=== PATIENT | male | born 1950 | race Caucasian/White ===

== ENCOUNTER 2018-02-07 20:42 | Inpatient (IN) | payer OTHER ==
[~2018-02-07] VITALS: Ht 172.7 cm; Wt 93.4 kg
[2018-02-07] MEDS ORDERED: IBUPROFEN 600 MG TABLET PO ONE (21:00)
[2018-02-07] MEDS ORDERED: IBUPROFEN 600 MG TABLET ONE (21:08)
[2018-02-07] MEDS ORDERED: FENO145T37 PO (21:12)
[2018-02-07] MEDS ORDERED: GABA-532 PO (21:12)
[2018-02-07] MEDS ORDERED: ALBU18HF2 IH (21:12)
[2018-02-07] MEDS ORDERED: DIVA500T2 PO (21:12)
[2018-02-07] MEDS ORDERED: CLON0.5T12 PO (21:12)
[2018-02-07] MEDS ORDERED: CHOL50004 PO (21:12)
[2018-02-07] MEDS ORDERED: CLOP75TA15 PO (21:12)
[2018-02-07] MEDS ORDERED: FLUO-120 PO (21:12)
[2018-02-07] MEDS ORDERED: HYDR25TA4 PO (21:12)
[2018-02-07] MEDS ORDERED: AMLO10TA2 PO (21:12)
[2018-02-07] MEDS ORDERED: LAMO200T PO (21:12)
[2018-02-07] MEDS ORDERED: LISI10TA5 PO (21:12)
[2018-02-07] MEDS ORDERED: ATOR20TA PO (21:12)
[2018-02-07] MEDS ORDERED: RANO10003 PO (21:12)
[2018-02-07] MEDS ORDERED: METO50TA16 PO (21:12)
[2018-02-07] MEDS ORDERED: MAGNESIUM HYDROXIDE 30 ML LIQUID UDC PO PRN (22:00)
[2018-02-07] MEDS ORDERED: MAG HYDROX/AL HYDROX/SIMETH 30 ML LIQUID UDC PO PRN (22:00)
[2018-02-07] MEDS ORDERED: LORAZEPAM 1 MG TABLET PO PRN (22:00)
[2018-02-07] MEDS: METOPROLOL TARTRATE 50 MG TABLET PO SCH (23:26)
[2018-02-08 07:26] LABS: BASOPHILS # (AUTO) 0.1 K/uL (0.0-8.0); BASOPHILS % (AUTO) 1.7 % (0.0-2.0); EOSINOPHILS # (AUTO) 0.3 K/uL (0.0-0.7); EOSINOPHILS % (AUTO) 4.8 % (0.0-7.0); HEMOGLOBIN 13.2 g/dL (12.5-16.3); LYMPHOCYTES # (AUTO) 2.6 K/uL (20.0-40.0); LYMPHOCYTES % (AUTO) 47.2 % (20.5-51.5); MEAN CORPUSCULAR HEMOGLOBIN 30.1 uug (23.8-33.4); MEAN CORPUSCULAR HGB CONC 34 g/dL (32.5-36.3); MEAN CORPUSCULAR VOLUME 88.7 fL (73.0-96.2); MONOCYTES # (AUTO) 0.6 K/uL (2.0-10.0); MONOCYTES % (AUTO) 11.7 % (0.0-11.0); NEUTROPHILS # (AUTO) 1.9 K/uL (1.8-8.9); NEUTROPHILS % (AUTO) 34.6 % (38.5-71.5); PLATELET COUNT (AUTO) 252 K/uL (152-348); RED BLOOD CELL COUNT(AUTO) 4.39 MIL/uL (4.06-5.63); WHITE BLOOD COUNT (AUTO) 5.4 K/uL (3.6-10.2)
[2018-02-08 07:30] VITALS: BP 165/85
[2018-02-08 07:53] LABS: BILIRUBIN,TOTAL 0.3 mg/dL (0.2-1.0); CREATININE 1.3 mg/dL (0.6-1.3); MAGNESIUM 2.1 mg/dL (1.8-2.4); PHOSPHOROUS 3.8 mg/dL (2.5-4.9); TOTAL PROTEIN, SERUM 6.3 g/dL (6.4-8.2)
[2018-02-08 07:58] LABS: THYROID STIMULATING HORMONE 1.636 mIU/mL (0.358-3.740)
[2018-02-08 08:04] LABS: POTASSIUM 2.8 mmol/L (3.5-5.1)
[2018-02-08] MEDS ORDERED: POTASSIUM CHLORIDE 10 MEQ TAB.PRT.SR PO STA (08:17)
[2018-02-08] MEDS ORDERED: POTASSIUM CHLORIDE 20 MEQ TAB.PRT.SR PO STA (08:20)
[2018-02-08] MEDS: CHOLECALCIFEROL 1,000 UNIT TABLET PO SCH (08:24)
[2018-02-08] MEDS: FENOFIBRATE NANOCRYSTALLIZED 145 MG TABLET PO SCH (08:25)
[2018-02-08] MEDS: CLOPIDOGREL 75 MG TABLET PO SCH (08:25)
[2018-02-08] MEDS: HYDROCHLOROTHIAZIDE 25 MG TABLET PO SCH (08:25)
[2018-02-08] MEDS: LISINOPRIL 10 MG TABLET PO SCH (08:25)
[2018-02-08] MEDS ORDERED: LAMOTRIGINE 200 MG TABLET PO SCH (09:00)
[2018-02-08] MEDS ORDERED: DIVALPROEX 500 MG TABLET.DR PO SCH (09:00)
[2018-02-08] MEDS: RANOLAZINE 500 MG TAB.ER.12H PO SCH ×2 (09:13→17:16)
[2018-02-08] MEDS ORDERED: POTASSIUM CHLORIDE 20 MEQ TAB.PRT.SR PO ONE (11:00)
[2018-02-08] MEDS: AMLODIPINE 10 MG TABLET PO SCH (11:48)
[2018-02-08] MEDS: METOPROLOL TARTRATE 50 MG TABLET PO SCH ×2 (11:48→22:11)
[2018-02-08] MEDS: ACETAMINOPHEN 325 MG TABLET PO PRN ×2 (14:31→20:52)
[2018-02-08] MEDS: hydrALAZINE HCL 25 MG TABLET PO PRN (15:01)
[2018-02-08 15:35] VITALS: BP 161/91
[2018-02-08] MEDS ORDERED: DIVALPROEX 250 MG TABLET.DR PO SCH (17:00)
[2018-02-08] MEDS: DIVALPROEX 500 MG TABLET.DR PO SCH (17:16)
[2018-02-08 20:43] VITALS: BP 130/65
[2018-02-08] MEDS: ATORVASTATIN 20 MG TABLET PO SCH (20:52)
[2018-02-08] MEDS: TRAZODONE 100 MG TABLET PO SCH (20:52)
[2018-02-09 07:30] VITALS: BP 123/72
[2018-02-09] MEDS: FENOFIBRATE NANOCRYSTALLIZED 145 MG TABLET PO SCH (08:57)
[2018-02-09] MEDS: DIVALPROEX 500 MG TABLET.DR PO SCH ×3 (08:57→17:11)
[2018-02-09] MEDS: CLOPIDOGREL 75 MG TABLET PO SCH (08:57)
[2018-02-09] MEDS: FLUOXETINE HCL 20 MG CAPSULE PO SCH (08:58)
[2018-02-09] MEDS: HYDROCHLOROTHIAZIDE 25 MG TABLET PO SCH (08:58)
[2018-02-09] MEDS: CHOLECALCIFEROL 1,000 UNIT TABLET PO SCH (08:58)
[2018-02-09] MEDS: LISINOPRIL 10 MG TABLET PO SCH (08:58)
[2018-02-09] MEDS: AMLODIPINE 10 MG TABLET PO SCH (08:59)
[2018-02-09] MEDS: METOPROLOL TARTRATE 50 MG TABLET PO SCH ×2 (08:59→20:42)
[2018-02-09] MEDS: LAMOTRIGINE 200 MG TABLET PO SCH (09:35)
[2018-02-09] MEDS: RANOLAZINE 500 MG TAB.ER.12H PO SCH ×2 (09:35→17:11)
[2018-02-09 09:56] LABS: *BLOOD, URINE NEGATIVE (NEGATIVE); *CLARITY,URINE CLEAR (CLEAR); *COLOR,URINE YELLOW (YELLOW); *KETONES,URINE NEGATIVE (NEGATIVE); *PROTEIN,URINE TRACE (NEGATIVE); LEUKOCYTE ESTERASE ,URINE NEGATIVE (NEGATIVE); NITRITE, URINE NEGATIVE (NEGATIVE); UGLUCOSE NEGATIVE (NEGATIVE)
[2018-02-09 10:00] LABS: *BILIRUBIN,URIN 1+ (NEGATIVE)
[2018-02-09 10:04] LABS: BACTERIA,URINE FEW /HPF (NONE SEEN); MUCUS,URINE MODERATE /LPF (0-FEW); RBC,URINE 0-3 /HPF (0-3); SQUAMOUS EPITHELIAL CELL,UR FEW /HPF (NONE SEEN)
[2018-02-09] MEDS ORDERED: POTASSIUM CHLORIDE 20 MEQ TAB.PRT.SR PO ONE (11:15)
[2018-02-09] MEDS: ACETAMINOPHEN 325 MG TABLET PO PRN ×2 (11:46→22:11)
[2018-02-09 15:59] VITALS: BP 148/86
[2018-02-09] MEDS: TRAZODONE 100 MG TABLET PO SCH (20:42)
[2018-02-09] MEDS: ATORVASTATIN 20 MG TABLET PO SCH (20:42)
[2018-02-09] MEDS: hydrALAZINE HCL 25 MG TABLET PO PRN (20:59)
[2018-02-09 22:04] VITALS: BP 139/75
[2018-02-10 07:30] VITALS: BP 164/61
[2018-02-10] MEDS: CHOLECALCIFEROL 1,000 UNIT TABLET PO SCH (08:19)
[2018-02-10] MEDS: AMLODIPINE 10 MG TABLET PO SCH (08:19)
[2018-02-10] MEDS: DIVALPROEX 500 MG TABLET.DR PO SCH ×3 (08:20→16:06)
[2018-02-10] MEDS: FLUOXETINE HCL 20 MG CAPSULE PO SCH (08:20)
[2018-02-10] MEDS: METOPROLOL TARTRATE 50 MG TABLET PO SCH ×2 (08:20→20:26)
[2018-02-10] MEDS: HYDROCHLOROTHIAZIDE 25 MG TABLET PO SCH (08:20)
[2018-02-10] MEDS: LISINOPRIL 10 MG TABLET PO SCH (08:20)
[2018-02-10] MEDS: CLOPIDOGREL 75 MG TABLET PO SCH (08:20)
[2018-02-10] MEDS: FENOFIBRATE NANOCRYSTALLIZED 145 MG TABLET PO SCH (08:21)
[2018-02-10] MEDS: RANOLAZINE 500 MG TAB.ER.12H PO SCH ×2 (08:21→16:06)
[2018-02-10] MEDS: LAMOTRIGINE 200 MG TABLET PO SCH (08:21)
[2018-02-10] MEDS: hydrALAZINE HCL 25 MG TABLET PO PRN (08:28)
[2018-02-10] MEDS: ACETAMINOPHEN 325 MG TABLET PO PRN (11:19)
[2018-02-10 15:23] VITALS: BP 137/71
[2018-02-10] MEDS: ATORVASTATIN 20 MG TABLET PO SCH (20:25)
[2018-02-10] MEDS: TRAZODONE 100 MG TABLET PO SCH (20:25)
[2018-02-10 20:32] VITALS: BP 137/71
[2018-02-10] MEDS: TEMAZEPAM 7.5 MG CAPSULE PO PRN (21:01)
[2018-02-11 07:30] VITALS: BP 130/67
[2018-02-11 08:24] LABS: CREATININE 1.6 mg/dL (0.6-1.3); POTASSIUM 3.1 mmol/L (3.5-5.1)
[2018-02-11] MEDS ORDERED: FLUOXETINE HCL 20 MG CAPSULE PO SCH (09:00)
[2018-02-11] MEDS: CHOLECALCIFEROL 1,000 UNIT TABLET PO SCH (09:15)
[2018-02-11] MEDS: FENOFIBRATE NANOCRYSTALLIZED 145 MG TABLET PO SCH (09:15)
[2018-02-11] MEDS: HYDROCHLOROTHIAZIDE 25 MG TABLET PO SCH (09:15)
[2018-02-11] MEDS: AMLODIPINE 10 MG TABLET PO SCH (09:16)
[2018-02-11] MEDS: DIVALPROEX 500 MG TABLET.DR PO SCH ×3 (09:16→17:29)
[2018-02-11] MEDS: CLOPIDOGREL 75 MG TABLET PO SCH (09:16)
[2018-02-11] MEDS: FLUOXETINE HCL 10 MG CAPSULE PO SCH (09:16)
[2018-02-11] MEDS: RANOLAZINE 500 MG TAB.ER.12H PO SCH ×2 (09:17→17:29)
[2018-02-11] MEDS: LISINOPRIL 10 MG TABLET PO SCH (09:17)
[2018-02-11] MEDS: METOPROLOL TARTRATE 50 MG TABLET PO SCH ×2 (09:17→21:04)
[2018-02-11] MEDS: LAMOTRIGINE 200 MG TABLET PO SCH (09:18)
[2018-02-11] MEDS: ASPIRIN/ACETAMINOPHEN/CAFFEINE TABLET PO PRN ×2 (09:32→16:45)
[2018-02-11] MEDS ORDERED: POTASSIUM CHLORIDE 10 MEQ TAB.PRT.SR PO ONE (14:00)
[2018-02-11 15:00] VITALS: BP 142/70
[2018-02-11] MEDS: ONDANSETRON ODT 4 MG TAB.RAPDIS SL PRN (19:41)
[2018-02-11 19:50] VITALS: BP 144/75
[2018-02-11] MEDS: TRAZODONE 100 MG TABLET PO SCH (21:03)
[2018-02-11] MEDS: ATORVASTATIN 20 MG TABLET PO SCH (21:03)
[2018-02-11] MEDS: TEMAZEPAM 7.5 MG CAPSULE PO PRN (22:36)
[2018-02-12 08:05] VITALS: BP 117/58
[2018-02-12] MEDS: HYDROCHLOROTHIAZIDE 25 MG TABLET PO SCH (09:00)
[2018-02-12] MEDS: LISINOPRIL 10 MG TABLET PO SCH (09:00)
[2018-02-12] MEDS: AMLODIPINE 10 MG TABLET PO SCH (09:00)
[2018-02-12] MEDS: RANOLAZINE 500 MG TAB.ER.12H PO SCH ×2 (09:09→17:12)
[2018-02-12] MEDS: FENOFIBRATE NANOCRYSTALLIZED 145 MG TABLET PO SCH (09:09)
[2018-02-12] MEDS: DIVALPROEX 500 MG TABLET.DR PO SCH ×3 (09:09→17:12)
[2018-02-12] MEDS: LAMOTRIGINE 200 MG TABLET PO SCH (09:09)
[2018-02-12] MEDS: CHOLECALCIFEROL 1,000 UNIT TABLET PO SCH (09:09)
[2018-02-12] MEDS: FLUOXETINE HCL 10 MG CAPSULE PO SCH (09:10)
[2018-02-12] MEDS: METOPROLOL TARTRATE 50 MG TABLET PO SCH ×2 (09:10→20:53)
[2018-02-12] MEDS: CLOPIDOGREL 75 MG TABLET PO SCH (09:10)
[2018-02-12] MEDS: ASPIRIN/ACETAMINOPHEN/CAFFEINE TABLET PO PRN ×2 (09:10→14:02)
[2018-02-12] MEDS: ONDANSETRON ODT 4 MG TAB.RAPDIS SL PRN (11:45)
[2018-02-12] MEDS: ACETAMINOPHEN 325 MG TABLET PO PRN ×2 (12:52→22:34)
[2018-02-12 16:46] VITALS: BP 137/69
[2018-02-12] MEDS ORDERED: METOCLOPRAMIDE HCL 10 MG TABLET PO PRN (18:30)
[2018-02-12] MEDS: ATORVASTATIN 20 MG TABLET PO SCH (20:53)
[2018-02-12] MEDS: TRAZODONE 100 MG TABLET PO SCH (20:55)
[2018-02-12 22:33] VITALS: BP 154/77
[2018-02-12] MEDS: TEMAZEPAM 7.5 MG CAPSULE PO PRN (22:34)
[2018-02-13 07:30] VITALS: BP 157/67
[2018-02-13] MEDS: CHOLECALCIFEROL 1,000 UNIT TABLET PO SCH (08:03)
[2018-02-13] MEDS: AMLODIPINE 10 MG TABLET PO SCH (08:03)
[2018-02-13] MEDS: HYDROCHLOROTHIAZIDE 25 MG TABLET PO SCH (08:04)
[2018-02-13] MEDS: CLOPIDOGREL 75 MG TABLET PO SCH (08:04)
[2018-02-13] MEDS: DIVALPROEX 500 MG TABLET.DR PO SCH ×3 (08:04→18:31)
[2018-02-13] MEDS: LISINOPRIL 10 MG TABLET PO SCH (08:04)
[2018-02-13] MEDS: FENOFIBRATE NANOCRYSTALLIZED 145 MG TABLET PO SCH (08:04)
[2018-02-13] MEDS: RANOLAZINE 500 MG TAB.ER.12H PO SCH ×2 (08:05→18:32)
[2018-02-13] MEDS: METOPROLOL TARTRATE 50 MG TABLET PO SCH ×2 (08:05→20:08)
[2018-02-13] MEDS: LAMOTRIGINE 200 MG TABLET PO SCH (08:05)
[2018-02-13] MEDS: FLUOXETINE HCL 10 MG CAPSULE PO SCH (08:05)
[2018-02-13 08:24] LABS: CREATININE 1.4 mg/dL (0.6-1.3); POTASSIUM 3.2 mmol/L (3.5-5.1)
[2018-02-13] MEDS ORDERED: PROPRANOLOL HCL 10 MG TABLET PO ONE (10:30)
[2018-02-13] MEDS: ONDANSETRON ODT 4 MG TAB.RAPDIS SL PRN ×2 (11:43→17:21)
[2018-02-13] MEDS: ASPIRIN/ACETAMINOPHEN/CAFFEINE TABLET PO PRN (11:53)
[2018-02-13] MEDS ORDERED: POTASSIUM CHLORIDE 20 MEQ TAB.PRT.SR PO ONE (12:15)
[2018-02-13 15:15] VITALS: BP 135/73
[2018-02-13 20:07] VITALS: BP 162/74
[2018-02-13] MEDS: ATORVASTATIN 20 MG TABLET PO SCH (20:07)
[2018-02-13] MEDS: PROPRANOLOL HCL 10 MG TABLET PO SCH (20:07)
[2018-02-13] MEDS: TRAZODONE 100 MG TABLET PO SCH (20:08)
[2018-02-14 08:00] VITALS: BP 126/65
[2018-02-14] MEDS: ASPIRIN/ACETAMINOPHEN/CAFFEINE TABLET PO PRN (08:59)
[2018-02-14] MEDS: CHOLECALCIFEROL 1,000 UNIT TABLET PO SCH (09:01)
[2018-02-14] MEDS: CLOPIDOGREL 75 MG TABLET PO SCH (09:01)
[2018-02-14] MEDS: FENOFIBRATE NANOCRYSTALLIZED 145 MG TABLET PO SCH (09:01)
[2018-02-14] MEDS: FLUOXETINE HCL 10 MG CAPSULE PO SCH (09:01)
[2018-02-14] MEDS: AMLODIPINE 10 MG TABLET PO SCH (09:02)
[2018-02-14] MEDS: LISINOPRIL 10 MG TABLET PO SCH (09:02)
[2018-02-14] MEDS: DIVALPROEX 500 MG TABLET.DR PO SCH ×3 (09:02→17:46)
[2018-02-14] MEDS: HYDROCHLOROTHIAZIDE 25 MG TABLET PO SCH (09:03)
[2018-02-14] MEDS: PROPRANOLOL HCL 10 MG TABLET PO SCH ×2 (09:04→20:06)
[2018-02-14] MEDS: LAMOTRIGINE 200 MG TABLET PO SCH (09:06)
[2018-02-14] MEDS: RANOLAZINE 500 MG TAB.ER.12H PO SCH ×2 (09:06→17:46)
[2018-02-14 11:05] VITALS: BP 165/78
[2018-02-14] MEDS: METOPROLOL TARTRATE 50 MG TABLET PO SCH ×2 (11:07→20:06)
[2018-02-14] MEDS: ONDANSETRON ODT 4 MG TAB.RAPDIS SL PRN (11:07)
[2018-02-14 16:16] VITALS: BP 156/82
[2018-02-14 20:00] VITALS: BP 138/69
[2018-02-14] MEDS: ATORVASTATIN 20 MG TABLET PO SCH (20:05)
[2018-02-14] MEDS: TRAZODONE 100 MG TABLET PO SCH (20:05)
[2018-02-15 07:30] VITALS: BP 115/96
[2018-02-15] MEDS: HYDROCHLOROTHIAZIDE 25 MG TABLET PO SCH (09:07)
[2018-02-15] MEDS: DIVALPROEX 500 MG TABLET.DR PO SCH ×3 (09:07→16:57)
[2018-02-15] MEDS: PROPRANOLOL HCL 10 MG TABLET PO SCH ×2 (09:08→20:14)
[2018-02-15] MEDS: LAMOTRIGINE 200 MG TABLET PO SCH (09:08)
[2018-02-15] MEDS: CLOPIDOGREL 75 MG TABLET PO SCH (09:09)
[2018-02-15] MEDS: AMLODIPINE 10 MG TABLET PO SCH (09:09)
[2018-02-15] MEDS: METOPROLOL TARTRATE 50 MG TABLET PO SCH ×2 (09:09→20:14)
[2018-02-15] MEDS: FLUOXETINE HCL 10 MG CAPSULE PO SCH (09:10)
[2018-02-15] MEDS: LISINOPRIL 10 MG TABLET PO SCH (09:10)
[2018-02-15] MEDS: RANOLAZINE 500 MG TAB.ER.12H PO SCH ×2 (09:10→16:57)
[2018-02-15] MEDS: CHOLECALCIFEROL 1,000 UNIT TABLET PO SCH (09:11)
[2018-02-15] MEDS: FENOFIBRATE NANOCRYSTALLIZED 145 MG TABLET PO SCH (09:11)
[2018-02-15] MEDS: ASPIRIN/ACETAMINOPHEN/CAFFEINE TABLET PO PRN ×2 (09:26→17:01)
[2018-02-15 16:34] VITALS: BP 141/72
[2018-02-15 20:11] VITALS: BP 151/74
[2018-02-15] MEDS: ATORVASTATIN 20 MG TABLET PO SCH (20:12)
[2018-02-15] MEDS: TRAZODONE 100 MG TABLET PO SCH (20:13)
[2018-02-15] MEDS: TEMAZEPAM 7.5 MG CAPSULE PO PRN (21:01)
[2018-02-16 07:30] VITALS: BP 141/69
[2018-02-16] MEDS: RANOLAZINE 500 MG TAB.ER.12H PO SCH ×3 (08:49→17:12)
[2018-02-16] MEDS: LAMOTRIGINE 200 MG TABLET PO SCH (08:49)
[2018-02-16] MEDS: LISINOPRIL 10 MG TABLET PO SCH (08:53)
[2018-02-16] MEDS: FLUOXETINE HCL 10 MG CAPSULE PO SCH (08:53)
[2018-02-16] MEDS: CHOLECALCIFEROL 1,000 UNIT TABLET PO SCH (08:53)
[2018-02-16] MEDS: FENOFIBRATE NANOCRYSTALLIZED 145 MG TABLET PO SCH (08:54)
[2018-02-16] MEDS: HYDROCHLOROTHIAZIDE 25 MG TABLET PO SCH (08:54)
[2018-02-16] MEDS: AMLODIPINE 10 MG TABLET PO SCH (08:55)
[2018-02-16] MEDS: PROPRANOLOL HCL 10 MG TABLET PO SCH ×2 (08:55→20:40)
[2018-02-16] MEDS: CLOPIDOGREL 75 MG TABLET PO SCH (08:57)
[2018-02-16] MEDS: METOPROLOL TARTRATE 50 MG TABLET PO SCH ×2 (08:57→20:41)
[2018-02-16] MEDS: DIVALPROEX 500 MG TABLET.DR PO SCH ×4 (08:57→17:12)
[2018-02-16] MEDS: ASPIRIN/ACETAMINOPHEN/CAFFEINE TABLET PO PRN ×2 (09:09→16:00)
[2018-02-16] MEDS: ONDANSETRON ODT 4 MG TAB.RAPDIS SL PRN (16:01)
[2018-02-16 20:04] VITALS: BP 146/75
[2018-02-16] MEDS: ATORVASTATIN 20 MG TABLET PO SCH (20:40)
[2018-02-16] MEDS: TRAZODONE 100 MG TABLET PO SCH (20:42)
[2018-02-16] MEDS: TEMAZEPAM 7.5 MG CAPSULE PO PRN (22:06)
[2018-02-17 07:30] VITALS: BP 119/59
[2018-02-17] MEDS: FLUOXETINE HCL 10 MG CAPSULE PO SCH (08:21)
[2018-02-17] MEDS: CHOLECALCIFEROL 1,000 UNIT TABLET PO SCH (08:22)
[2018-02-17] MEDS: PROPRANOLOL HCL 10 MG TABLET PO SCH ×2 (08:22→20:27)
[2018-02-17] MEDS: LISINOPRIL 10 MG TABLET PO SCH (08:23)
[2018-02-17] MEDS: FENOFIBRATE NANOCRYSTALLIZED 145 MG TABLET PO SCH (08:23)
[2018-02-17] MEDS: METOPROLOL TARTRATE 50 MG TABLET PO SCH ×2 (08:23→20:22)
[2018-02-17] MEDS: CLOPIDOGREL 75 MG TABLET PO SCH (08:24)
[2018-02-17] MEDS: DIVALPROEX 500 MG TABLET.DR PO SCH ×3 (08:24→16:45)
[2018-02-17] MEDS: HYDROCHLOROTHIAZIDE 25 MG TABLET PO SCH (08:24)
[2018-02-17] MEDS: AMLODIPINE 10 MG TABLET PO SCH (08:25)
[2018-02-17] MEDS: RANOLAZINE 500 MG TAB.ER.12H PO SCH ×2 (08:26→16:45)
[2018-02-17] MEDS: LAMOTRIGINE 200 MG TABLET PO SCH (08:31)
[2018-02-17 08:38] LABS: CREATININE 2.2 mg/dL (0.6-1.3)
[2018-02-17 08:39] LABS: POTASSIUM 2.7 mmol/L (3.5-5.1)
[2018-02-17] MEDS ORDERED: POTASSIUM CHLORIDE 20 MEQ TAB.PRT.SR PO ONE (10:00)
[2018-02-17] MEDS: ASPIRIN/ACETAMINOPHEN/CAFFEINE TABLET PO PRN (10:44)
[2018-02-17 13:41] LABS: POTASSIUM 3.3 mmol/L (3.5-5.1)
[2018-02-17] MEDS ORDERED: POTASSIUM CHLORIDE 10 MEQ TAB.PRT.SR PO ONE (16:45)
[2018-02-17 16:52] VITALS: BP 158/48
[2018-02-17 19:30] VITALS: BP 148/75
[2018-02-17] MEDS: TRAZODONE 100 MG TABLET PO SCH (20:22)
[2018-02-17] MEDS: ATORVASTATIN 20 MG TABLET PO SCH (20:22)
[2018-02-18 07:30] VITALS: BP 125/64
[2018-02-18 07:35] LABS: BASOPHILS % (AUTO) 0.9 % (0.0-2.0); EOSINOPHILS # (AUTO) 0.1 K/uL (0.0-0.7); EOSINOPHILS % (AUTO) 1.9 % (0.0-7.0); HEMATOCRIT 38.2 % (36.7-47.1); LYMPHOCYTES # (AUTO) 1.9 K/uL (20.0-40.0); LYMPHOCYTES % (AUTO) 36.1 % (20.5-51.5); MEAN CORPUSCULAR HEMOGLOBIN 30.5 uug (23.8-33.4); MEAN CORPUSCULAR HGB CONC 34 g/dL (32.5-36.3); MEAN CORPUSCULAR VOLUME 89.8 fL (73.0-96.2); MONOCYTES # (AUTO) 0.7 K/uL (2.0-10.0); MONOCYTES % (AUTO) 12.6 % (0.0-11.0); NEUTROPHILS # (AUTO) 2.5 K/uL (1.8-8.9); NEUTROPHILS % (AUTO) 48.5 % (38.5-71.5); PLATELET COUNT (AUTO) 244 K/uL (152-348); RED BLOOD CELL COUNT(AUTO) 4.25 MIL/uL (4.06-5.63); WHITE BLOOD COUNT (AUTO) 5.2 K/uL (3.6-10.2)
[2018-02-18 07:52] LABS: CREATININE 2.1 mg/dL (0.6-1.3); MAGNESIUM 2.6 mg/dL (1.8-2.4)
[2018-02-18] MEDS ORDERED: POTASSIUM CHLORIDE 20 MEQ TAB.PRT.SR PO SCH (09:00)
[2018-02-18] MEDS ORDERED: POTASSIUM CHLORIDE 20 MEQ TAB.PRT.SR PO ONE (09:15)
[2018-02-18] MEDS: CHOLECALCIFEROL 1,000 UNIT TABLET PO SCH (09:37)
[2018-02-18] MEDS: AMLODIPINE 10 MG TABLET PO SCH (09:37)
[2018-02-18] MEDS: FENOFIBRATE NANOCRYSTALLIZED 145 MG TABLET PO SCH (09:37)
[2018-02-18] MEDS: FLUOXETINE HCL 10 MG CAPSULE PO SCH (09:37)
[2018-02-18] MEDS: HYDROCHLOROTHIAZIDE 25 MG TABLET PO SCH (09:37)
[2018-02-18] MEDS: PROPRANOLOL HCL 10 MG TABLET PO SCH (09:37)
[2018-02-18] MEDS: DIVALPROEX 500 MG TABLET.DR PO SCH ×3 (09:37→13:11)
[2018-02-18 09:38] VITALS: BP 125/69
[2018-02-18] MEDS: METOPROLOL TARTRATE 50 MG TABLET PO SCH (09:38)
[2018-02-18] MEDS: LAMOTRIGINE 200 MG TABLET PO SCH (09:38)
[2018-02-18] MEDS: LISINOPRIL 10 MG TABLET PO SCH (09:38)
[2018-02-18] MEDS: CLOPIDOGREL 75 MG TABLET PO SCH (09:38)
[2018-02-18] MEDS: RANOLAZINE 500 MG TAB.ER.12H PO SCH (09:38)
[2018-02-18 10:36] LABS: *BILIRUBIN,URIN NEGATIVE (NEGATIVE); *BLOOD, URINE NEGATIVE (NEGATIVE); *CLARITY,URINE CLEAR (CLEAR); *COLOR,URINE YELLOW (YELLOW); *KETONES,URINE NEGATIVE (NEGATIVE); *PROTEIN,URINE NEGATIVE (NEGATIVE); *UROBILINOGEN,URINE 0.2 E.U./dl (NORMAL); LEUKOCYTE ESTERASE ,URINE NEGATIVE (NEGATIVE); NITRITE, URINE NEGATIVE (NEGATIVE); UGLUCOSE NEGATIVE (NEGATIVE)
[2018-02-18 10:47] LABS: BACTERIA,URINE FEW /HPF (NONE SEEN); RBC,URINE 0-3 /HPF (0-3); SQUAMOUS EPITHELIAL CELL,UR FEW /HPF (NONE SEEN); WBC,URINE 0-3 /HPF (0-3)
[2018-02-18] MEDS ORDERED: ASPI1TAB2 PO (17:38)
[2018-02-18] MEDS ORDERED: ONDA8TAB13 SL (17:43)
[2018-02-18] MEDS ORDERED: PROP40TA7 PO (17:43)
[2018-02-18] MEDS ORDERED: TRAZ300T2 PO (17:43)
[2018-02-18] MEDS ORDERED: POTA20TA10 PO (17:43)
[2018-02-18] MEDS ORDERED: ACET-2154 PO (17:45)
[2018-02-18] MEDS ORDERED: PROP10TA10 PO (17:47)
== END 2018-02-18 14:30 | disposition short-term general hospital (02) | DRG 885 ==
LOC: ER 20:44 → GPS 21:19
PROVIDERS: ADMIT Psychiatry & Neurology Psychiatry; ATTEND Nurse Practitioner Acute Care
DX: F31.30 Bipolar disorder, current episode depressed, mild or moderate severity, unspecified (principal); N39.0 Urinary tract infection, site not specified; G43.909 Migraine, unspecified, not intractable, without status migrainosus; G89.29 Other chronic pain; Z79.899 Other long term (current) drug therapy; Z79.02 Long term (current) use of antithrombotics/antiplatelets; I11.9 Hypertensive heart disease without heart failure; Z95.1 Presence of aortocoronary bypass graft; Z95.5 Presence of coronary angioplasty implant and graft; E78.5 Hyperlipidemia, unspecified; I25.119 Atherosclerotic heart disease of native coronary artery with unspecified angina pectoris; I25.2 Old myocardial infarction; F12.90 Cannabis use, unspecified, uncomplicated; E87.6 Hypokalemia; Z87.891 Personal history of nicotine dependence; G47.33 Obstructive sleep apnea (adult) (pediatric); J32.3 Chronic sphenoidal sinusitis; E66.9 Obesity, unspecified; Z68.31 Body mass index [BMI] 31.0-31.9, adult; Z71.3 Dietary counseling and surveillance; Z59.0 Homelessness; Z91.14 Patient's other noncompliance with medication regimen; Z91.81 History of falling; L98.9 Disorder of the skin and subcutaneous tissue, unspecified; I67.2 Cerebral atherosclerosis
CPT/HCPCS: 36415; 70030-TC; 70450; 71045; 80164; 83735; 84100; 84132; 84443; 85025; 87086; 93005; A4663; A9150; Q0162

== ENCOUNTER 2018-02-18 14:55 | Inpatient (IN) | payer MEDICARE, OTHER ==
[~2018-02-18] VITALS: Ht 172.7 cm; Wt 100.7 kg
[2018-02-18 14:00] VITALS: BP 156/83
--- NOTE | 2018-02-18 14:00 | NUR ---
Received patient from [facility] via wheelchair in stable condition. Patient is awake, alert and oriented x4, in no acute distress. Denies chest pain or SOB. Patient c/o mild migraine headache 10/11. Complete body assessment done, no skin injury noted. Skin is intact. Lungs clear upon auscultation. Bowel sounds present on all 4 quadrants. PERRLA. Patient able to ambulate with cane/FWW with moderate assistance. Oriented to the use of call light and bed side rails and bed alarm. Epic group was paged, spoke with MINERVA Waldrop made her aware of patient admission to the unit. Admission orders given. Patient denies any dysuria or flank pain. Urinal was provided. Able to void freely. Admission questions was done accordingly. Will continue to monitor.
[~2018-02-18 14:55] MED LIST: ALBU18HF2 IH; AMLO10TA2 PO; ATOR20TA PO; CHOL50004 PO; CLON0.5T12 PO; CLOP75TA15 PO; DIVA500T2 PO; FENO145T37 PO; FLUO-120 PO; GABA-532 PO; HYDR25TA4 PO; LAMO200T PO; LISI10TA5 PO; METO50TA16 PO; RANO10003 PO
[2018-02-18] MEDS ORDERED: MAGNESIUM HYDROXIDE 30 ML LIQUID UDC PO PRN (16:30)
[2018-02-18] MEDS ORDERED: Z GUARD REMEDY PASTE 57 GM TUBE TOP PRN (16:30)
[2018-02-18] MEDS ORDERED: ACETAMINOPHEN 325 MG TABLET PO PRN (16:30)
[2018-02-18] MEDS ORDERED: GABAPENTIN 100 MG CAPSULE PO SCH (16:45)
[2018-02-18] MEDS ORDERED: FLUOXETINE HCL 20 MG CAPSULE PO SCH (17:00)
[2018-02-18] MEDS ORDERED: ALBUTEROL SULFATE 8 GM HFA.AER.AD IH SCH (17:00)
[2018-02-18] MEDS: METOPROLOL TARTRATE 50 MG TABLET PO SCH (17:26)
[2018-02-18] MEDS: DIVALPROEX 500 MG TABLET.DR PO SCH (17:26)
[2018-02-18] MEDS: AMLODIPINE 10 MG TABLET PO SCH (17:26)
[2018-02-18] MEDS ORDERED: ALBUTEROL SULFATE 2.5 MG/3 ML NEBU NEB PRN (17:30)
[2018-02-18] MEDS ORDERED: ASPI1TAB2 PO (17:38)
[2018-02-18] MEDS ORDERED: ONDA8TAB13 SL (17:43)
[2018-02-18] MEDS ORDERED: POTA20TA10 PO (17:43)
[2018-02-18] MEDS ORDERED: TRAZ300T2 PO (17:43)
[2018-02-18] MEDS ORDERED: PROP40TA7 PO (17:43)
[2018-02-18] MEDS ORDERED: ACET-2154 PO (17:45)
[2018-02-18] MEDS ORDERED: PROP10TA10 PO (17:47)
[2018-02-18] MEDS: IV D5W-0.45% NS +20 KCL 1,000 ML IV PRN (17:58)
--- NOTE | 2018-02-18 18:16 | NUR ---
End of shift note: Patient is awake, alert and oriented x4, in no acute distress. No SOB or chest pain noted. Denies any suicidal plan/attempt at this time. IV fluids running at 75cc/hr, IV site on LH intact. All needs attended and met. Will continue to monitor. Addendum: 02/18/18 at 1820 by LASHON HUSSEIN RN BLOCK MECHANIC made aware of patient's c/o blood in the stool [place] [facility] [place] to collect stool for OB, noted and carried out. Patient made aware
--- NOTE | 2018-02-18 19:25 | NUR ---
RECEIVED PT AWAKE, ALERT, ORIENTEDX3.IV INTACT AND PATENT. PT SHOWS NO ACUTE DISTRESS. CALL LIGHT WITHIN REACH, BED ALARM ON AND IN LOW POSITION, SIDE RAILS UPX2. PT AWARE THAT WE NEED AN OB MUNA FROM HIM. PUT COKER ON THE BATHROOM. WILL CONTINUE TO MONITOR.
[2018-02-18 20:00] VITALS: BP 145/60
[2018-02-18] MEDS: TRAZODONE 50 MG TABLET PO SCH (20:12)
[2018-02-18] MEDS: SULFAMETH/TRIMETH 800/160 MG TABLET PO SCH (20:12)
[2018-02-18] MEDS: PROPRANOLOL HCL 10 MG TABLET PO SCH (20:13)
[2018-02-18] MEDS: RANOLAZINE 500 MG TAB.ER.12H PO SCH (20:13)
[2018-02-18] MEDS: ATORVASTATIN 20 MG TABLET PO SCH (20:13)
[2018-02-18] MEDS ORDERED: TRAZODONE HCL 150 MG PO SCH (21:00)
[2018-02-19] MEDS: CLONAZEPAM 0.5 MG TABLET PO PRN (00:14)
[2018-02-19] MEDS: ASPIRIN/ACETAMINOPHEN/CAFFEINE TABLET PO SCH ×4 (00:14→17:00)
[2018-02-19 04:24] VITALS: BP 98/52
--- NOTE | 2018-02-19 06:27 | NUR ---
PT SLEPT THROUGHOUT THE SHIFT. PT SHOWS NO SIGNS OF DISTRESS. PT ON CPAP LAST NIGHT WHEN SLEEPING. PRESCRIBED MEDICATION GIVEN AND PT TOLERATED IT WELL. SAFETY AND COMFORT PROVIDED. ALL NEEDS ARE MET. WILL ENDORSE ACCORDINGLY.
[2018-02-19 07:01] LABS: BASOPHILS # (AUTO) 0.1 K/uL (0.0-8.0); EOSINOPHILS # (AUTO) 0.1 K/uL (0.0-0.7); EOSINOPHILS % (AUTO) 2.2 % (0.0-7.0); HEMATOCRIT 34.9 % (36.7-47.1); HEMOGLOBIN 12.1 g/dL (12.5-16.3); LYMPHOCYTES # (AUTO) 2.4 K/uL (20.0-40.0); LYMPHOCYTES % (AUTO) 47.2 % (20.5-51.5); MEAN CORPUSCULAR HGB CONC 35 g/dL (32.5-36.3); MEAN CORPUSCULAR VOLUME 89.9 fL (73.0-96.2); MONOCYTES # (AUTO) 0.6 K/uL (2.0-10.0); MONOCYTES % (AUTO) 12.1 % (0.0-11.0); NEUTROPHILS # (AUTO) 1.9 K/uL (1.8-8.9); NEUTROPHILS % (AUTO) 37.5 % (38.5-71.5); PLATELET COUNT (AUTO) 233 K/uL (152-348); RED BLOOD CELL COUNT(AUTO) 3.89 MIL/uL (4.06-5.63); WHITE BLOOD COUNT (AUTO) 5.1 K/uL (3.6-10.2)
[2018-02-19 07:10] LABS: CREATININE 1.9 mg/dL (0.6-1.3); MAGNESIUM 2.5 mg/dL (1.8-2.4); PHOSPHOROUS 4.9 mg/dL (2.5-4.9); POTASSIUM 2.9 mmol/L (3.5-5.1)
--- NOTE | 2018-02-19 07:15 | NUR ---
Received patient in bed, awake, alert and oriented x4, in no acute distress. Denies any suicidal ideation/attempt at this time. IV fluids running at 75cc/hr. Denies any chest pain or SOB at this time. IV site on LH intact, no s/s of infiltration noted. Will continue to monitor
[2018-02-19] MEDS: IV D5W-0.45% NS +20 KCL 1,000 ML IV PRN ×2 (07:40→20:42)
[2018-02-19] MEDS: ONDANSETRON 4 MG/2 ML VIAL IV PRN ×2 (08:18→17:13)
[2018-02-19] MEDS: DIVALPROEX 500 MG TABLET.DR PO SCH ×3 (08:25→16:57)
[2018-02-19] MEDS: SULFAMETH/TRIMETH 800/160 MG TABLET PO SCH ×2 (08:25→20:15)
[2018-02-19] MEDS: RANOLAZINE 500 MG TAB.ER.12H PO SCH ×2 (08:25→20:15)
[2018-02-19] MEDS: FENOFIBRATE NANOCRYSTALLIZED 145 MG TABLET PO SCH (08:25)
[2018-02-19] MEDS: METOPROLOL TARTRATE 50 MG TABLET PO SCH ×2 (08:26→16:56)
[2018-02-19] MEDS: CHOLECALCIFEROL 1,000 UNIT TABLET PO SCH (08:26)
[2018-02-19] MEDS: PROPRANOLOL HCL 10 MG TABLET PO SCH ×2 (08:26→20:16)
[2018-02-19] MEDS: AMLODIPINE 10 MG TABLET PO SCH ×2 (08:26→16:57)
[2018-02-19] MEDS: LAMOTRIGINE 200 MG TABLET PO SCH (08:26)
[2018-02-19] MEDS: CLOPIDOGREL 75 MG TABLET PO SCH (08:27)
[2018-02-19 11:23] VITALS: BP 143/76
[2018-02-19] MEDS ORDERED: POTASSIUM CHLORIDE 10 MEQ TAB.PRT.SR PO ONE ×2 (12:00→15:00)
[2018-02-19] MEDS ORDERED: POTASSIUM CHLORIDE 20 MEQ TAB.PRT.SR PO ONE ×2 (12:30→15:00)
[2018-02-19 15:15] VITALS: BP 135/67
--- NOTE | 2018-02-19 17:51 | NUR ---
End of shift note: Patient is alert and oriented x4, in no acute distress. Denies any suicidal ideation/attempt. Medicated for migraine headache routinely as ordered and was effective. Voiding freely, denies any dysuria or flank pain. Denies any bleeding or blood in the stool. No BM noted during this shift. Will endorse to cnc machinist 2nd shift for collection of stool. All needs attended and met. Call light within reach. Will continue to monitor.
[2018-02-19 18:24] LABS: CREATININE 1.5 mg/dL (0.6-1.3); POTASSIUM 3.4 mmol/L (3.5-5.1)
[2018-02-19 18:50] LABS: *BILIRUBIN,URIN NEGATIVE (NEGATIVE); *BLOOD, URINE NEGATIVE (NEGATIVE); *CLARITY,URINE CLEAR (CLEAR); *COLOR,URINE YELLOW (YELLOW); *KETONES,URINE NEGATIVE (NEGATIVE); *PROTEIN,URINE NEGATIVE (NEGATIVE); *UROBILINOGEN,URINE 0.2 E.U./dl (NORMAL); LEUKOCYTE ESTERASE ,URINE NEGATIVE (NEGATIVE); NITRITE, URINE NEGATIVE (NEGATIVE); PH,URINE 7.5 (5.0-8.0); UGLUCOSE NEGATIVE (NEGATIVE)
[2018-02-19 18:56] LABS: *CREATININE,URINE 74.5 mg/dL (30-125); *URINE TOTAL PROTEIN RANDOM 19.8 mg/dL (<150/24HR)
--- NOTE | 2018-02-19 19:15 | NUR ---
RECEIVED PT AWAKE, ALERT, ORIENTEDX4. PT SHOWS NO SIGNS OF DISTRESS. PT IV INTACT AND PATENT. PT HAVE COUGH. CALL LIGHT WITHIN REACH. BED ALARM ON AND IN LOW POSITION. WILL CONTINUE TO MONITOR.
[2018-02-19 19:35] LABS: SQUAMOUS EPITHELIAL CELL,UR FEW /HPF (NONE SEEN); WBC,URINE 0-3 /HPF (0-3)
[2018-02-19 20:00] VITALS: BP 136/73
[2018-02-19] MEDS: TRAZODONE 50 MG TABLET PO SCH (20:15)
[2018-02-19] MEDS: ATORVASTATIN 20 MG TABLET PO SCH (20:15)
[2018-02-19] MEDS ORDERED: GUAIFENESIN/DEXTROMETHORPHAN 5 ML UDC PO PRN (20:45)
[2018-02-20] MEDS: ASPIRIN/ACETAMINOPHEN/CAFFEINE TABLET PO SCH ×5 (00:36→23:54)
[2018-02-20 04:37] VITALS: BP 108/59
[2018-02-20 06:14] LABS: BASOPHILS % (AUTO) 0.9 % (0.0-2.0); EOSINOPHILS # (AUTO) 0.2 K/uL (0.0-0.7); EOSINOPHILS % (AUTO) 3.2 % (0.0-7.0); HEMATOCRIT 37.9 % (36.7-47.1); HEMOGLOBIN 12.9 g/dL (12.5-16.3); LYMPHOCYTES # (AUTO) 2.7 K/uL (20.0-40.0); LYMPHOCYTES % (AUTO) 52.6 % (20.5-51.5); MEAN CORPUSCULAR HEMOGLOBIN 30.7 uug (23.8-33.4); MEAN CORPUSCULAR HGB CONC 34 g/dL (32.5-36.3); MEAN CORPUSCULAR VOLUME 90.3 fL (73.0-96.2); MONOCYTES # (AUTO) 0.5 K/uL (2.0-10.0); MONOCYTES % (AUTO) 9.8 % (0.0-11.0); NEUTROPHILS # (AUTO) 1.7 K/uL (1.8-8.9); NEUTROPHILS % (AUTO) 33.5 % (38.5-71.5); PLATELET COUNT (AUTO) 243 K/uL (152-348); WHITE BLOOD COUNT (AUTO) 5.1 K/uL (3.6-10.2)
--- NOTE | 2018-02-20 06:20 | NUR ---
PT SLEPT THROUGHOUT THE SHIFT. PT SHOWS NO SIGNS OF DISTRESS. PRESCRIBED MEDICATION GIVEN AND PT TOLERATED IT WELL. SAFETY AND COMFORT PROVIDED. ALL NEEDS ARE MET. WILL ENDORSE ACCORDINGLY.
[2018-02-20 06:28] LABS: ALANINE AMINOTRANSFERASE 10 U/L (16-63); ALKALINE PHOSPHATASE 31 U/L (50-136); ASPARTATE AMINOTRANSFERASE < 5 U/L (15-37); BILIRUBIN,TOTAL 0.3 mg/dL (0.2-1.0); CARBON DIOXIDE 33 mmol/L (21-32); CHLORIDE 104 mmol/L (98-107); CREATININE 1.9 mg/dL (0.6-1.3); GLUCOSE 93 mg/dL (74-106); MAGNESIUM 2.1 mg/dL (1.8-2.4); PHOSPHOROUS 3.8 mg/dL (2.5-4.9); POTASSIUM 3.4 mmol/L (3.5-5.1); TOTAL PROTEIN, SERUM 6.2 g/dL (6.4-8.2); UREA NITROGEN, BLOOD 19 mg/dL (7-18)
--- NOTE | 2018-02-20 07:32 | NUR ---
patient resting comfortably bed at this time, awake/alert/oriented x4. informed patient to use call light when assistance is needed and patient verbalized understanding. bed alarm on, call light within reach, bed in locked/low position. awaiting stool for stool ob. will continue to monitor throughout shift.
[2018-02-20 08:03] VITALS: BP 139/75
[2018-02-20] MEDS: SULFAMETH/TRIMETH 800/160 MG TABLET PO SCH ×2 (08:21→20:17)
[2018-02-20] MEDS: POTASSIUM CHLORIDE 20 MEQ TAB.PRT.SR PO SCH (08:21)
[2018-02-20] MEDS: FENOFIBRATE NANOCRYSTALLIZED 145 MG TABLET PO SCH (08:21)
[2018-02-20] MEDS: AMLODIPINE 10 MG TABLET PO SCH ×2 (08:22→16:16)
[2018-02-20] MEDS: METOPROLOL TARTRATE 50 MG TABLET PO SCH ×2 (08:22→16:18)
[2018-02-20] MEDS: PROPRANOLOL HCL 10 MG TABLET PO SCH ×2 (08:22→20:18)
[2018-02-20] MEDS: LAMOTRIGINE 200 MG TABLET PO SCH (08:22)
[2018-02-20] MEDS: CHOLECALCIFEROL 1,000 UNIT TABLET PO SCH (08:22)
[2018-02-20] MEDS: DIVALPROEX 500 MG TABLET.DR PO SCH ×3 (08:23→16:16)
[2018-02-20] MEDS: RANOLAZINE 500 MG TAB.ER.12H PO SCH ×2 (08:23→20:17)
[2018-02-20] MEDS: CLOPIDOGREL 75 MG TABLET PO SCH (08:24)
[2018-02-20] MEDS ORDERED: POTASSIUM CHLORIDE 20 MEQ TAB.PRT.SR PO ONE ×3 (09:00→13:00)
[2018-02-20] MEDS: IV D5W-0.45% NS +20 KCL 1,000 ML IV PRN (10:54)
[2018-02-20 11:32] VITALS: BP 126/63
[2018-02-20 15:44] VITALS: BP 114/55
[2018-02-20 16:15] VITALS: BP 132/63
--- NOTE | 2018-02-20 17:23 | NUR ---
Patient stable throughout shift. Blood pressure managed. assisted to restroom with walker when needed, understands how to use call light. IVF running at this time. Afebrile. Cough has improved. electrolytes supplemented. vital signs WNL. no s/s of distress. bed alarm on, call light within reach, bed in locked/low position, side rails up x2.
[2018-02-20 20:00] VITALS: BP 132/67
--- NOTE | 2018-02-20 20:00 | NUR ---
RECEIVED PATIENT AWAKE IN BED. DENIES PAIN. NO RESP. DISTRESS NOTED. IVF INFUSING WELL. CALL LIGHT IN REACH. ALL NEEDS ATTENDED WILL CONTINUE TO MONITOR AND ASSESS.
[2018-02-20] MEDS: ATORVASTATIN 20 MG TABLET PO SCH (20:17)
[2018-02-20] MEDS: TRAZODONE 50 MG TABLET PO SCH (20:18)
[2018-02-20] MEDS: HYDROCODONE/APAP 5-325MG TABLET PO PRN (21:06)
[2018-02-21] MEDS: IV D5W-0.45% NS +20 KCL 1,000 ML IV PRN ×2 (01:38→15:03)
[2018-02-21 04:35] VITALS: BP 106/60
[2018-02-21 05:56] LABS: BASOPHILS # (AUTO) 0.1 K/uL (0.0-8.0); BASOPHILS % (AUTO) 1.2 % (0.0-2.0); EOSINOPHILS # (AUTO) 0.2 K/uL (0.0-0.7); EOSINOPHILS % (AUTO) 3.5 % (0.0-7.0); HEMATOCRIT 35.9 % (36.7-47.1); HEMOGLOBIN 12.6 g/dL (12.5-16.3); LYMPHOCYTES # (AUTO) 2.4 K/uL (20.0-40.0); LYMPHOCYTES % (AUTO) 51.7 % (20.5-51.5); MEAN CORPUSCULAR HEMOGLOBIN 31.6 uug (23.8-33.4); MEAN CORPUSCULAR HGB CONC 35 g/dL (32.5-36.3); MEAN CORPUSCULAR VOLUME 90.3 fL (73.0-96.2); MONOCYTES # (AUTO) 0.4 K/uL (2.0-10.0); MONOCYTES % (AUTO) 9.2 % (0.0-11.0); NEUTROPHILS # (AUTO) 1.6 K/uL (1.8-8.9); NEUTROPHILS % (AUTO) 34.4 % (38.5-71.5); PLATELET COUNT (AUTO) 206 K/uL (152-348); RED BLOOD CELL COUNT(AUTO) 3.98 MIL/uL (4.06-5.63); WHITE BLOOD COUNT (AUTO) 4.7 K/uL (3.6-10.2)
[2018-02-21 06:09] LABS: ALANINE AMINOTRANSFERASE 11 U/L (16-63); ALKALINE PHOSPHATASE 27 U/L (50-136); ASPARTATE AMINOTRANSFERASE < 5 U/L (15-37); BILIRUBIN,TOTAL 0.3 mg/dL (0.2-1.0); CARBON DIOXIDE 28 mmol/L (21-32); CHLORIDE 106 mmol/L (98-107); CREATININE 1.7 mg/dL (0.6-1.3); GLUCOSE 97 mg/dL (74-106); MAGNESIUM 2.1 mg/dL (1.8-2.4); PHOSPHOROUS 3.3 mg/dL (2.5-4.9); POTASSIUM 3.8 mmol/L (3.5-5.1); TOTAL PROTEIN, SERUM 5.6 g/dL (6.4-8.2); UREA NITROGEN, BLOOD 21 mg/dL (7-18)
[2018-02-21] MEDS: ASPIRIN/ACETAMINOPHEN/CAFFEINE TABLET PO SCH ×3 (06:24→17:01)
--- NOTE | 2018-02-21 06:51 | NUR ---
PATIENT RESTING IN BED. SLEPT WELL THROUGHOUT THE NIGHT. VSS. CALL LIGHT IN REACH. ALL NEEDS ATTENDED. WILL CONTINUE TO MONITOR AND ASSESS.
--- NOTE | 2018-02-21 07:30 | NUR ---
RECEIVED PATIENT IN BED AWAKE ALERT AND ORIENTED DENIES PAIN OR DISCOMFORTS AT THIS TIME REMAIN ON IVF ORDERED WITH NO S/S OF INFILTERATION ON SITE CALL LIGHTS ARE WITHIN NORMAL AND EASY REACH NOT IN DISTRESS AT THIS TIME WILL CONTINUE TO OBSERVE
[2018-02-21] MEDS: FENOFIBRATE NANOCRYSTALLIZED 145 MG TABLET PO SCH (08:50)
[2018-02-21] MEDS: DIVALPROEX 500 MG TABLET.DR PO SCH ×3 (08:50→16:22)
[2018-02-21] MEDS: SULFAMETH/TRIMETH 800/160 MG TABLET PO SCH ×2 (08:50→20:21)
[2018-02-21] MEDS: CHOLECALCIFEROL 1,000 UNIT TABLET PO SCH (08:50)
[2018-02-21] MEDS: POTASSIUM CHLORIDE 20 MEQ TAB.PRT.SR PO SCH (08:50)
[2018-02-21] MEDS: RANOLAZINE 500 MG TAB.ER.12H PO SCH ×2 (08:51→20:21)
[2018-02-21] MEDS: LAMOTRIGINE 200 MG TABLET PO SCH (08:51)
[2018-02-21] MEDS: CLOPIDOGREL 75 MG TABLET PO SCH (08:51)
[2018-02-21] MEDS: METOPROLOL TARTRATE 50 MG TABLET PO SCH ×2 (08:52→16:23)
[2018-02-21] MEDS: AMLODIPINE 10 MG TABLET PO SCH ×2 (08:52→16:23)
[2018-02-21] MEDS: PROPRANOLOL HCL 10 MG TABLET PO SCH ×2 (08:53→20:21)
[2018-02-21 12:08] VITALS: BP 126/69
[2018-02-21 16:14] VITALS: BP 139/72
--- NOTE | 2018-02-21 16:54 | NUR ---
PATIENT IS SOMEWHAT FORGETFUL EXPLAINED TO HIM THE [employer]OP[employer]ALEO MANAGER REGISTRATION SPECIALIST HAS BEEN IN CONTACT WITH [facility] FOR DISCHARGE PLANNING PATIENT WILL BE PICKED UP TO THE [facility] IN [facility] FOR A WEEK UNTIL HIS HOUSING IS READY FOR HIM ON March UNDERSTOOD BUT FORGOT AND ASKING THE SAME QUESTIONS ALL OVER AGAIN.REASSURED.
--- NOTE | 2018-02-21 18:00 | NUR ---
RESTING USING URINAL SEEN USING HIS C PA ON AND OFF STATED USES IT WHEN HE THINKS HE WILL FALL ASLEEP NO SHORTNESS OF BREATH AT THIS TIME.
[2018-02-21 20:14] VITALS: BP 147/68
[2018-02-21] MEDS: HYDROCODONE/APAP 5-325MG TABLET PO PRN (20:21)
[2018-02-21] MEDS: ATORVASTATIN 20 MG TABLET PO SCH (20:21)
[2018-02-21] MEDS: TRAZODONE 50 MG TABLET PO SCH (20:21)
[2018-02-21] MEDS ORDERED: MIRALAX 17 GM POWD.PACK PO ONE (21:15)
[2018-02-21] MEDS ORDERED: BISACODYL 10 MG SUPP.RECT RC ONE (21:15)
--- NOTE | 2018-02-22 00:10 | NUR ---
HANDS OFF REPORT BY HARVEY RUBIN. RECEIVED PT ASLEEP ON BED. PT SHOWS NO SIGNS OF DISTRESS. IV INTACT AND PATENT. PT USING CPAP FOR SLEEP. CALL LIGHT WITHIN REACH. SAFETY AND COMFORT PROVIDED. WILL CONTINUE TO MONITOR.
[2018-02-22 04:00] VITALS: BP 96/63
[2018-02-22] MEDS: ASPIRIN/ACETAMINOPHEN/CAFFEINE TABLET PO SCH ×4 (05:23→17:03)
--- NOTE | 2018-02-22 06:18 | NUR ---
PT SLEPT THROUGHOUT THE SHIFT. PT SHOWS NO SIGNS OF DISTRESS. IV INTACT AND PATENT. PRESCRIBED MEDICATION GIVEN AND PT TOLERATED IT WELL. SAFETY AND COMFORT PROVIDED. WILL ENDORSE ACCORDINGLY.
[2018-02-22 06:32] LABS: BASOPHILS % (AUTO) 0.9 % (0.0-2.0); EOSINOPHILS # (AUTO) 0.2 K/uL (0.0-0.7); EOSINOPHILS % (AUTO) 3.5 % (0.0-7.0); HEMATOCRIT 34.1 % (36.7-47.1); HEMOGLOBIN 11.7 g/dL (12.5-16.3); LYMPHOCYTES # (AUTO) 2.2 K/uL (20.0-40.0); LYMPHOCYTES % (AUTO) 45.7 % (20.5-51.5); MEAN CORPUSCULAR HEMOGLOBIN 31.5 uug (23.8-33.4); MEAN CORPUSCULAR HGB CONC 34 g/dL (32.5-36.3); MEAN CORPUSCULAR VOLUME 92.2 fL (73.0-96.2); MONOCYTES # (AUTO) 0.5 K/uL (2.0-10.0); MONOCYTES % (AUTO) 10.5 % (0.0-11.0); NEUTROPHILS # (AUTO) 1.9 K/uL (1.8-8.9); NEUTROPHILS % (AUTO) 39.4 % (38.5-71.5); PLATELET COUNT (AUTO) 190 K/uL (152-348); WHITE BLOOD COUNT (AUTO) 4.9 K/uL (3.6-10.2)
[2018-02-22 06:35] LABS: CREATININE 1.4 mg/dL (0.6-1.3); PHOSPHOROUS 3.5 mg/dL (2.5-4.9); POTASSIUM 3.9 mmol/L (3.5-5.1)
--- NOTE | 2018-02-22 07:25 | NUR ---
RECEIVED PATIENT AWAKE ALERT AND ORIENTED WITH HI C PAP ON AT THIS TIME NO SHORTNESS OF BREATH NOTED.REMAIN ON IVF ORDERED WITH NO S/S OF INFILTERATION VOIDING ADEQUATELY DENIES PAIN OR DISCOMFORTS AT THIS TIME NOT IN DISTRESS.
[2018-02-22] MEDS: IV D5W-0.45% NS +20 KCL 1,000 ML IV PRN ×2 (08:31→22:33)
[2018-02-22] MEDS: LAMOTRIGINE 200 MG TABLET PO SCH (08:35)
[2018-02-22] MEDS: DIVALPROEX 500 MG TABLET.DR PO SCH ×3 (08:35→16:13)
[2018-02-22] MEDS: CHOLECALCIFEROL 1,000 UNIT TABLET PO SCH (08:35)
[2018-02-22] MEDS: METOPROLOL TARTRATE 50 MG TABLET PO SCH ×2 (08:35→16:13)
[2018-02-22] MEDS: FENOFIBRATE NANOCRYSTALLIZED 145 MG TABLET PO SCH (08:35)
[2018-02-22] MEDS: RANOLAZINE 500 MG TAB.ER.12H PO SCH ×2 (08:35→20:13)
[2018-02-22] MEDS: SULFAMETH/TRIMETH 800/160 MG TABLET PO SCH ×2 (08:35→20:14)
[2018-02-22] MEDS: POTASSIUM CHLORIDE 20 MEQ TAB.PRT.SR PO SCH (08:36)
[2018-02-22] MEDS: AMLODIPINE 10 MG TABLET PO SCH ×2 (08:36→16:13)
[2018-02-22] MEDS: PROPRANOLOL HCL 10 MG TABLET PO SCH ×2 (08:36→20:14)
[2018-02-22] MEDS: CLOPIDOGREL 75 MG TABLET PO SCH (08:37)
[2018-02-22 11:35] VITALS: BP 113/58
[2018-02-22 13:14] LABS: *OCCULT BLOOD STOOL POSITIVE (NEGATIVE)
--- NOTE | 2018-02-22 14:30 | NUR ---
PATIENT SEEN BY THE PHYSICAL THERAPY FOR THERA[EUTIC EXERCISES AND PER THE THERAPIST PATIENT WILL NEED REHAB THE LOADER HELPER SORTING YARD REINFORCING STEEL PLACER NOTIFIED.
[2018-02-22 15:45] VITALS: BP 135/67
--- NOTE | 2018-02-22 16:31 | NUR ---
ELECTRONICS DEPARTMENT MANAGER ULYSSES HENAO AWARE THAT RESULT FOR STOOL FOR OB SENT TO THE LAB RETURNED POSITIVE WITH NO NEW ORDERS AT THIS TIME.
--- NOTE | 2018-02-22 18:00 | NUR ---
NOT IN DISTRESS RESTING WITH IVF ORDERED WILL CONTINUE TO OBSERVE.
--- NOTE | 2018-02-22 19:10 | NUR ---
RECEIVED PT AWAKE ON BED, AAOX4, NO SOB, DENIES CHEST PAIN. IV SITE ON R HAND, PATENT AND INTACT. SAFETY MEASURES INITIATED, CALL MCQUEEN WITHIN REACH.
[2018-02-22 20:00] VITALS: BP 138/67
[2018-02-22] MEDS: ATORVASTATIN 20 MG TABLET PO SCH (20:14)
[2018-02-22] MEDS: TRAZODONE 50 MG TABLET PO SCH (20:19)
[2018-02-22] MEDS: HYDROCODONE/APAP 5-325MG TABLET PO PRN (20:28)
[2018-02-23 04:00] VITALS: BP 135/69
[2018-02-23] MEDS: ASPIRIN/ACETAMINOPHEN/CAFFEINE TABLET PO SCH ×4 (06:00→17:12)
[2018-02-23 06:42] LABS: CREATININE 1.5 mg/dL (0.6-1.3); POTASSIUM 4.2 mmol/L (3.5-5.1)
--- NOTE | 2018-02-23 07:39 | NUR ---
AWAKE ALERT AND ORIENTED AT THIS TIME ANXIOUS REGARDING DISCHARGE AND HIS FINAL DESTINATION REASSURED HIM THAT THE DOCTOR AND THE AUTOMOTIVE LIGHT MECHANIC/MEAT STOCKER WILL WORK OUT A SAFE DISPOSITION AND EXPRESSED UNDERSTANDING.REMAIN ON IVF ORDERED TOLERATING WELL WITH NO S/S OF INFILTERATION ON SITE.PATIENT MADE COMFORTABLE AND WILL CONTINUE TO OBSERVE.
[2018-02-23] MEDS: SULFAMETH/TRIMETH 800/160 MG TABLET PO SCH ×2 (08:42→21:13)
[2018-02-23] MEDS: CHOLECALCIFEROL 1,000 UNIT TABLET PO SCH (08:42)
[2018-02-23] MEDS: POTASSIUM CHLORIDE 20 MEQ TAB.PRT.SR PO SCH (08:42)
[2018-02-23] MEDS: RANOLAZINE 500 MG TAB.ER.12H PO SCH ×2 (08:43→21:13)
[2018-02-23] MEDS: FENOFIBRATE NANOCRYSTALLIZED 145 MG TABLET PO SCH (08:43)
[2018-02-23] MEDS: LAMOTRIGINE 200 MG TABLET PO SCH (08:43)
[2018-02-23] MEDS: DIVALPROEX 500 MG TABLET.DR PO SCH ×3 (08:43→16:29)
[2018-02-23] MEDS: CLOPIDOGREL 75 MG TABLET PO SCH (08:43)
[2018-02-23] MEDS: PROPRANOLOL HCL 10 MG TABLET PO SCH ×2 (08:45→21:14)
[2018-02-23] MEDS: AMLODIPINE 10 MG TABLET PO SCH ×2 (08:46→16:30)
[2018-02-23] MEDS: METOPROLOL TARTRATE 50 MG TABLET PO SCH ×2 (08:46→16:30)
[2018-02-23] MEDS ORDERED: TRAZ-213 PO (11:01)
[2018-02-23] MEDS ORDERED: CHOL10002 PO (11:01)
[2018-02-23] MEDS ORDERED: RANO500T3 PO (11:01)
[2018-02-23] MEDS ORDERED: SULF1TAB3 PO (11:01)
[2018-02-23] MEDS ORDERED: POTA20TA10 PO (11:01)
--- NOTE | 2018-02-23 11:03 | NUR ---
PATIENT AMBULATED WITH A CANE IN THE HALLWAY WITH STANDBY -MIN ASSIST WITH THE PHYSICAL THERAPY AND TOLERATED FAIRLY WELL.D/C PLANNING AWAITING FOR THE ESTHETICIAN/SKIN THERAPIST TO FIMALISE HIS DISPOSITION.
[2018-02-23 11:29] VITALS: BP 137/67
--- NOTE | 2018-02-23 13:34 | NUR ---
PERSONNEL INTERVIEWER [employer] PATROL POLICE STATED THAT BASED ON THE FACT THAT PATIENT WILL HAVE NO HELP AT THE [facility] PATIENT IS NOT SAFE THERE AT THIS TIME STATED THAT SHE IS ATTEMPTING TO ARRANGE FOR A NURSING HOME FACILITY STILL AWAITING FOR CALL BACK FROM HIS INSURANCE
[2018-02-23] MEDS: HYDROCODONE/APAP 5-325MG TABLET PO PRN (14:03)
[2018-02-23 15:24] VITALS: BP 149/70
[2018-02-23] MEDS: IV D5W-0.45% NS +20 KCL 1,000 ML IV PRN (16:29)
--- NOTE | 2018-02-23 17:29 | NUR ---
RESTING DUE MEDICATIONS GIVEN REMAIN ON IVF STILL UNSURE OF DISPOSITION OF THE PATIENT AT THIS TIME PER THE CAMP COOK/TRAINING ENGINEER PATIENT AWARE
--- NOTE | 2018-02-23 19:10 | NUR ---
RECEIVED PT AWAKE ON BED, AAOX4, DENIES ANY SOB OR CHEST PAIN, SAFETY MEASURES INITIATED, CALL MCQUEEN WITHIN REACH
[2018-02-23 20:40] VITALS: BP 138/67
[2018-02-23] MEDS: ATORVASTATIN 20 MG TABLET PO SCH (21:13)
[2018-02-23] MEDS: TRAZODONE 50 MG TABLET PO SCH (21:13)
[2018-02-24] MEDS: ASPIRIN/ACETAMINOPHEN/CAFFEINE TABLET PO SCH ×5 (01:02→23:34)
[2018-02-24 04:21] VITALS: BP 138/69
--- NOTE | 2018-02-24 06:00 | NUR ---
PT COMPLAINT OF SOB, REQUESTING FOR BREATHING TREATMENT. RT PAGED AND NOTIFIED ON PT'S STATUS. WILL CONTINUE TO MONITOR
--- NOTE | 2018-02-24 06:35 | NUR ---
PT RECEIVED BREATHING TREATMENT, TOLERATED WELL. NO SIGNS OF RESPIRATORY DISTRESS NOTED, BREATHING TREATMENT EFFECTIVE.
[2018-02-24] MEDS: IV D5W-0.45% NS +20 KCL 1,000 ML IV PRN ×2 (06:41→20:13)
--- NOTE | 2018-02-24 07:30 | NUR ---
RECEIVED PATIENT IN BED AWAKE ALERT AND ORIENTED RESTING COMFORTABLY IN BED WITH NO SHORTNESS OF BREATH AT THIS TIME.IVF REMAINS IN PROGRESS ORDERED D/C PLANNING TODAY PENDING APPROVAL BY HIS INSURANCE WILL CONTINUE TO OBSERVE.
[2018-02-24] MEDS: SULFAMETH/TRIMETH 800/160 MG TABLET PO SCH ×2 (09:04→20:08)
[2018-02-24] MEDS: POTASSIUM CHLORIDE 20 MEQ TAB.PRT.SR PO SCH (09:04)
[2018-02-24] MEDS: CHOLECALCIFEROL 1,000 UNIT TABLET PO SCH (09:04)
[2018-02-24] MEDS: RANOLAZINE 500 MG TAB.ER.12H PO SCH ×2 (09:04→20:08)
[2018-02-24] MEDS: FENOFIBRATE NANOCRYSTALLIZED 145 MG TABLET PO SCH (09:04)
[2018-02-24] MEDS: DIVALPROEX 500 MG TABLET.DR PO SCH ×3 (09:05→16:49)
[2018-02-24] MEDS: METOPROLOL TARTRATE 50 MG TABLET PO SCH ×2 (09:06→16:50)
[2018-02-24] MEDS: AMLODIPINE 10 MG TABLET PO SCH ×2 (09:06→16:49)
[2018-02-24] MEDS: PROPRANOLOL HCL 10 MG TABLET PO SCH ×2 (09:07→20:08)
[2018-02-24] MEDS: CLOPIDOGREL 75 MG TABLET PO SCH (09:09)
[2018-02-24] MEDS: LAMOTRIGINE 200 MG TABLET PO SCH (09:09)
[2018-02-24 11:34] VITALS: BP 158/79
--- NOTE | 2018-02-24 13:14 | NUR ---
PATIENT SEEN AND EXAMINED BY [facility] ADMISSION COORDINATOR AWAITING FOR ACCEPTANCE.
[2018-02-24 15:24] VITALS: BP 145/71
--- NOTE | 2018-02-24 16:00 | NUR ---
PER THE EXTENSION WORK INSTRUCTOR SEARCH SPECIALIST UNABLE TO DISCHARGE PATIENT TODAY DUE TO PLACEMENT ISSUES
--- NOTE | 2018-02-24 17:18 | NUR ---
PATIENT IS AWARE OF THE PLACEMENT ISSUES RESTING IN BED COMPLIANT WITH MEDICATIONS DENIES FEELING SUICIDAL BUT DEPRESSED AND CONCERNED OVER THE DISCHARGE PLACEMENT ISSUES.
[2018-02-24 19:00] VITALS: BP 146/71
--- NOTE | 2018-02-24 19:30 | NUR ---
RECEIVED SHIFT REPORT FROM HARVEY VELA. PT RESTING IN BED. TUCKER PAIN, C/P, SOB, N/V. PT DENIES SI. IVF D5 1/2 NS 20 mEq INFUSING AT 75 CC/HR. CALL LIGHT WITHIN REACH.
[2018-02-24] MEDS: ATORVASTATIN 20 MG TABLET PO SCH (20:08)
[2018-02-24] MEDS: TRAZODONE 50 MG TABLET PO SCH (20:08)
[2018-02-25 04:00] VITALS: BP 131/59
[2018-02-25] MEDS: ASPIRIN/ACETAMINOPHEN/CAFFEINE TABLET PO SCH ×3 (05:30→18:29)
[2018-02-25] MEDS: AMLODIPINE 10 MG TABLET PO SCH ×2 (08:39→16:32)
[2018-02-25] MEDS: PROPRANOLOL HCL 10 MG TABLET PO SCH ×2 (08:39→20:51)
[2018-02-25] MEDS: DIVALPROEX 500 MG TABLET.DR PO SCH ×3 (08:39→16:31)
[2018-02-25] MEDS: CHOLECALCIFEROL 1,000 UNIT TABLET PO SCH (08:39)
[2018-02-25] MEDS: METOPROLOL TARTRATE 50 MG TABLET PO SCH ×2 (08:39→16:31)
[2018-02-25] MEDS: CLOPIDOGREL 75 MG TABLET PO SCH (08:40)
[2018-02-25] MEDS: FENOFIBRATE NANOCRYSTALLIZED 145 MG TABLET PO SCH (08:40)
[2018-02-25] MEDS: RANOLAZINE 500 MG TAB.ER.12H PO SCH ×2 (08:40→20:50)
[2018-02-25] MEDS: SULFAMETH/TRIMETH 800/160 MG TABLET PO SCH (08:40)
[2018-02-25] MEDS: LAMOTRIGINE 200 MG TABLET PO SCH (08:40)
[2018-02-25] MEDS: POTASSIUM CHLORIDE 20 MEQ TAB.PRT.SR PO SCH (08:40)
[2018-02-25 11:11] VITALS: BP 135/65
[2018-02-25] MEDS ORDERED: IV NS 1000 ML 1,000 ML IV ONE (11:45)
[2018-02-25] MEDS: IV D5W-0.45% NS +20 KCL 1,000 ML IV PRN (12:03)
[2018-02-25] MEDS: HYDROCODONE/APAP 5-325MG TABLET PO PRN (15:24)
[2018-02-25 15:34] VITALS: BP 145/68
--- NOTE | 2018-02-25 18:00 | NUR ---
PATIENT ALERT, IN NO DISTRESS. PT C/O OF ONGOING HEADACHE, PAIN MANAGEMENT ORDERED, ADMINISTERED EXCEDRIN SCHEDULED. IVF RUNNING, NO INFILTRATION NOTED. PATIENT IS PLEASANT, NO BEHAVIORAL ISSUES THROUGHOUT THE SHIFT. VS STABLE, AFEBRILE. SAFETY MEASURES IN PLACE.
[2018-02-25 20:00] VITALS: BP 154/71
--- NOTE | 2018-02-25 20:00 | NUR ---
RECEIVED PATIENT AWAKE IN BED. PATIENT IS A/O X4. DENIES PAIN OR DISCOMFORT. NO RESP. DISTRESS NOTED. ON RA SATING 96%. IVF INFUSING WELL TO LEFT HAND #20 GAUGE. VSS. BED ALARM ON FOR SAFETY. CALL LIGHT IN REACH. ALL NEEDS ATTENDED. WILL CONTINUE TO MONITOR AND ASSESS.
[2018-02-25] MEDS: ATORVASTATIN 20 MG TABLET PO SCH (20:52)
[2018-02-25] MEDS: TRAZODONE 50 MG TABLET PO SCH (20:52)
[2018-02-26] MEDS: ASPIRIN/ACETAMINOPHEN/CAFFEINE TABLET PO SCH ×5 (00:30→23:52)
[2018-02-26] MEDS: IV D5W-0.45% NS +20 KCL 1,000 ML IV PRN ×2 (01:16→15:14)
[2018-02-26 04:19] VITALS: BP 117/55
--- NOTE | 2018-02-26 06:44 | NUR ---
PATIENT ASLEEP IN BED. EASILY AROUSABLE. VSS. SLEPT WELL THROUGHOUT THE NIGHT. DENIES PAIN. IVF INFUSING WELL. CALL LIGHT IN REACH. ALL NEEDS ATTENDED. WILL CONTINUE TO MONITOR AND ASSESS.
[2018-02-26] MEDS: PROPRANOLOL HCL 10 MG TABLET PO SCH ×2 (08:35→20:38)
[2018-02-26] MEDS: AMLODIPINE 10 MG TABLET PO SCH ×2 (08:35→17:07)
[2018-02-26] MEDS: METOPROLOL TARTRATE 50 MG TABLET PO SCH ×2 (08:36→17:06)
[2018-02-26] MEDS: FENOFIBRATE NANOCRYSTALLIZED 145 MG TABLET PO SCH (08:37)
[2018-02-26] MEDS: CHOLECALCIFEROL 1,000 UNIT TABLET PO SCH (08:37)
[2018-02-26] MEDS: POTASSIUM CHLORIDE 20 MEQ TAB.PRT.SR PO SCH (08:37)
[2018-02-26] MEDS: RANOLAZINE 500 MG TAB.ER.12H PO SCH ×2 (08:38→20:37)
[2018-02-26] MEDS: LAMOTRIGINE 200 MG TABLET PO SCH (08:38)
[2018-02-26] MEDS: CLOPIDOGREL 75 MG TABLET PO SCH (08:38)
[2018-02-26] MEDS: DIVALPROEX 500 MG TABLET.DR PO SCH ×3 (08:38→17:07)
[2018-02-26 11:27] VITALS: BP 147/70
--- NOTE | 2018-02-26 13:00 | NUR ---
Assisted patient with toileting needs, pt uses walker, unsteady gait, risk for falls.
[2018-02-26] MEDS: HYDROCODONE/APAP 5-325MG TABLET PO PRN ×2 (14:31→21:26)
[2018-02-26 15:47] VITALS: BP 145/71
--- NOTE | 2018-02-26 19:45 | NUR ---
RECEIVED PATIENT AWAKE IN BED. PATIENT IS A/O X4. DENIES PAIN OR DISCOMFORT. NO RESP. DISTRESS NOTED. IVF INFUSING WELL TO LEFT HAND #20 GAUGE. VSS. BED ALARM ON FOR SAFETY. CALL LIGHT IN REACH. ALL NEEDS ATTENDED. WILL CONTINUE TO MONITOR AND ASSESS.
[2018-02-26] MEDS: TRAZODONE 50 MG TABLET PO SCH (20:37)
[2018-02-26] MEDS: ATORVASTATIN 20 MG TABLET PO SCH (20:37)
[2018-02-26 20:42] VITALS: BP 142/71
--- NOTE | 2018-02-26 21:30 | NUR ---
PATIENT AWAKE IN BED, C/O MIGRAINE. PATIENT GIVEN NORCO 1 TAB PO PRN. WILL CONTINUE TO MONITOR.
--- NOTE | 2018-02-26 22:30 | NUR ---
PATIENT ASLEEP. NORCO EFFECTIVE. NO S/S OF PAIN OR DISCOMFORT. NO FACIAL GRIMACE NOTED. ALL NEEDS ATTENDED. WILL CONTINUE TO MONITOR AND ASSESS.
[2018-02-27] MEDS: IV D5W-0.45% NS +20 KCL 1,000 ML IV PRN (02:09)
[2018-02-27 04:00] VITALS: BP 118/56
[2018-02-27] MEDS: ASPIRIN/ACETAMINOPHEN/CAFFEINE TABLET PO SCH ×2 (05:56→10:33)
--- NOTE | 2018-02-27 05:58 | NUR ---
PATIENT AWAKE IN BED. SLEPT WELL THROUGHOUT THE NIGHT. VSS. CALL LIGHT IN REACH. ALL NEEDS ATTENDED. WILL CONTINUE TO MONITOR AND ASSESS.
[2018-02-27] MEDS: RANOLAZINE 500 MG TAB.ER.12H PO SCH (08:43)
[2018-02-27] MEDS: CHOLECALCIFEROL 1,000 UNIT TABLET PO SCH (08:44)
[2018-02-27] MEDS: DIVALPROEX 500 MG TABLET.DR PO SCH (08:44)
[2018-02-27] MEDS: POTASSIUM CHLORIDE 20 MEQ TAB.PRT.SR PO SCH (08:45)
[2018-02-27] MEDS: FENOFIBRATE NANOCRYSTALLIZED 145 MG TABLET PO SCH (08:46)
[2018-02-27] MEDS: CLOPIDOGREL 75 MG TABLET PO SCH (08:46)
[2018-02-27] MEDS: LAMOTRIGINE 200 MG TABLET PO SCH (08:46)
[2018-02-27] MEDS: AMLODIPINE 10 MG TABLET PO SCH (08:55)
[2018-02-27] MEDS: METOPROLOL TARTRATE 50 MG TABLET PO SCH (08:56)
[2018-02-27] MEDS: PROPRANOLOL HCL 10 MG TABLET PO SCH (08:58)
[2018-02-27] MEDS: CLONAZEPAM 0.5 MG TABLET PO PRN (10:33)
[2018-02-27 11:33] VITALS: BP 138/70
== END 2018-02-27 11:40 | DRG 640 ==
LOC: MED 14:55
PROVIDERS: ADMIT Registered Nurse; ATTEND Registered Nurse
DX: E87.6 Hypokalemia (principal); N17.0 Acute kidney failure with tubular necrosis; N39.0 Urinary tract infection, site not specified; I12.9 Hypertensive chronic kidney disease with stage 1 through stage 4 chronic kidney disease, or unspecified chronic kidney disease; N18.9 Chronic kidney disease, unspecified; T37.0X5A Adverse effect of sulfonamides, initial encounter; T50.2X5A Adverse effect of carbonic-anhydrase inhibitors, benzothiadiazides and other diuretics, initial encounter; Y92.89 Other specified places as the place of occurrence of the external cause; I25.2 Old myocardial infarction; Z95.1 Presence of aortocoronary bypass graft; Z95.5 Presence of coronary angioplasty implant and graft; Z79.02 Long term (current) use of antithrombotics/antiplatelets; Z79.899 Other long term (current) drug therapy; Z59.0 Homelessness; F31.9 Bipolar disorder, unspecified; F41.9 Anxiety disorder, unspecified; G47.33 Obstructive sleep apnea (adult) (pediatric); G43.909 Migraine, unspecified, not intractable, without status migrainosus; E66.8 Other obesity; Z68.33 Body mass index [BMI] 33.0-33.9, adult; Z71.3 Dietary counseling and surveillance; E55.9 Vitamin D deficiency, unspecified; G89.4 Chronic pain syndrome; E78.5 Hyperlipidemia, unspecified; Z91.81 History of falling; Z87.891 Personal history of nicotine dependence; Z87.440 Personal history of urinary (tract) infections
CPT/HCPCS: 36415; 76770; 83735; 84100; 84156; 84300; 85025; 87400; 94664; 97110; 97116; A4663; A9150; J2405; J3490